=== PATIENT | male | born 1970 | race Caucasian/White ===

== ENCOUNTER 2017-01-22 09:00 | Emergency (ER) | payer OTHER ==
[~2017-01-22] VITALS: Ht 172.7 cm; Wt 149.3 kg
[~2017-01-22 09:00] MED LIST: FLEXERIL10 MG PO; SIMVASTATIN20 MG PO; TYLENOL325 MG PO
[2017-01-22] MEDS ORDERED: PEN NEEDLE1 EAC9 MISC (09:17)
[2017-01-22] MEDS ORDERED: ATORVASTATIN CA10 MG PO (09:17)
[2017-01-22] MEDS ORDERED: LANTUS SOL100 UNIT/1 SUB-Q (09:17)
[2017-01-22] MEDS ORDERED: LISINOPRIL10 MG PO (09:17)
[2017-01-22] MEDS ORDERED: OMEPRAZOLE20 MG PO (09:17)
[2017-01-22] MEDS ORDERED: EPIN0.3P IM (09:24)
[2017-01-22] MEDS ORDERED: METFORMIN HCL500 M1 PO (09:24)
--- NOTE | 2017-01-22 16:35 | EKG ---
[facility] [address] [facility] [place] [address] Signed Normal sinus rhythm Normal ECG No previous ECGs available Confirmed by ROSENDA LECHUGA MD ([id number]) on 01/22/2017 4:35:32 PM Electronically Signed By: ROSENDA LECHUGA MD 01/22/17 1635 PATIENT NAME: KEVIN LIMA OLIVER Electrocardiogram DATE OF : 72 PHYSICIAN: ROSENDA LECHUGA MD REPORT #: [id number] REPORT IS CONFIDENTIAL AND NOT TO BE RELEASED WITHOUT AUTHORIZATION
== END 2017-01-22 11:23 | disposition home or self-care (01) ==
LOC: ED 09:00
DX: R05 Cough (principal); E11.9 Type 2 diabetes mellitus without complications; E78.5 Hyperlipidemia, unspecified; I10 Essential (primary) hypertension; E66.01 Morbid (severe) obesity due to excess calories; Z87.891 Personal history of nicotine dependence; Z91.048 Other nonmedicinal substance allergy status; Z88.7 Allergy status to serum and vaccine; Z79.899 Other long term (current) drug therapy; Z79.4 Long term (current) use of insulin
CPT/HCPCS: 71020; 80053; 83880; 84484; 85025; 93005; 93010; 94640; 99284

== ENCOUNTER 2017-02-13 18:32 | Emergency (ER) | payer OTHER ==
[~2017-02-13] VITALS: Ht 172.7 cm; Wt 149.7 kg
[~2017-02-13 18:32] MED LIST changes: +ATORVASTATIN CA10 MG PO; +EPIN0.3P IM; +LANTUS SOL100 UNIT/1 SUB-Q; +LISINOPRIL10 MG PO; +METFORMIN HCL500 M1 PO; +OMEPRAZOLE20 MG PO; +PEN NEEDLE1 EAC9 MISC
--- OUTSIDE RECORDS SUMMARY | 2017-02-13 21:37 | XMS | Clinical Summary ---
Demographics + + + | Address | [address] | | | [place] [address] | + + + | Home Phone | | + + + | Preferred Language | Unknown | + + + | Marital Status | Unknown | + + + | Confucianist Affiliation | NON | + + + | Race | White | + + + | Ethnic Group | Not or | + + + Author + + + | Author | [facility] | + + + | Organization | [facility] | + + + | Address | Unknown | + + + | Phone | Unavailable | + + + Care Team Providers + +------+ + | Care Director [employer] Name | Role | Phone | + +------+ + PP | Unavailable | + +------+ + Source Comments MARQUIS is fully live on both [facility] and [facility] InPatient.[facility] Allergies Not on File Current Medications Not on file Active Problems Not on file Social History + +-------+ +--------+------+ | Tobacco Use | Types | Packs/Day | Years | Date | | | | | Used | | + +-------+ +--------+------+ | Never Assessed | | | | | + +-------+ +--------+------+ + + + | Sex Assigned at | Date Recorded | | | | + + + | Not on file | | + + + Plan of Treatment + + + + + | Health Maintenance | Due Date | Last Done | Comments | + + + + + | INFLUENZA VACCINE | | | | | (FLU SHOT) | 7 | | | + + + + + Results Not on filefrom Last 3 Months"
== END 2017-02-13 20:50 | disposition home or self-care (01) ==
LOC: ED 18:32
DX: K62.5 Hemorrhage of anus and rectum (principal); Z91.048 Other nonmedicinal substance allergy status; Z79.4 Long term (current) use of insulin; Z88.7 Allergy status to serum and vaccine; Z98.890 Other specified postprocedural states; E11.9 Type 2 diabetes mellitus without complications; E78.5 Hyperlipidemia, unspecified; I10 Essential (primary) hypertension; Z87.891 Personal history of nicotine dependence; Z79.899 Other long term (current) drug therapy
CPT/HCPCS: 80053; 85025; 85610; 85730; 99283

== ENCOUNTER 2017-05-30 07:11 | Day surgery (SDC) | payer OTHER ==
[~2017-05-30] VITALS: Ht 172.7 cm; Wt 147.5 kg
--- NOTE | 2017-05-30 09:42 | NUR ---
05/30/17 0942 Elena Cullen 0840 PT ARRIVED IN PACU SLEEPY. ABD SOFT AND PT PASSING FLATUS. 0900 PT AWAKE SITTING UP IN BED. SIPPING ON WATER. 0920 DC INSTRUCTIONS GIVEN TO PT/SPOUSE. LEFT VIA W/C.
--- NOTE | 2017-06-07 06:10 | OR ---
[facility] [address] [place], [place] [address] Signed DATE OF OPERATION: 05/30/2017 SURGEON: Fina Dickinson MD PREOPERATIVE DIAGNOSES: 1. Rectal bleeding. 2. Guaiac-positive stool. POSTOPERATIVE DIAGNOSIS: Minimal internal hemorrhoids. PROCEDURE: Colonoscopy without biopsy. ESTIMATED BLOOD LOSS: None. 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 In the last five months he has had a lot of trouble with rectal bleeding. He said it is worse with bowel movements. He had been in the emergency room and of course, he was guaiac-positive. Really nothing in the way of external hemorrhoids. Consequently, his primary care provider asked him to see me for a colonoscopy. In the office, I gave him a booklet on colonoscopy. We looked at that together along with the risks including, but not limited to gas bloating, crampy abdominal pain, bleeding, perforation, requiring surgery, and missed diagnosis. We also discussed the need for IV conscious sedation. He had expressed understanding and wished to proceed. PROCEDURE NOTE: Jayjay was taken into our endoscopy suite and placed in the left lateral decubitus position. He was given divided doses of 4 mg of Versed and 100 mcg of fentanyl. A digital rectal exam was performed and this was unremarkable. Nothing in the way of external hemorrhoids. He is a large man and I could just feel the bottom of his prostate. It was unremarkable. The adult colonoscope was introduced and advanced all way around into the cecum under direct visualization of the camera. He had a moderate bowel prep. He should consider some additional prep on his next colonoscopy. There were areas of solid particulate stool matter, I could not suction completely through the scope. After this, the scope was slowly withdrawn. We saw no pathology in his entire colon or rectum. Upon retroflexion of scope, he has minimal internal hemorrhoid Electronically Signed By: FINA DICKINSON MD 06/07/17 0610 PATIENT NAME: JAYJAY LIMA OLIVER OPERATIVE REPORT DATE OF : 72 REPORT #: [id number] PHYSICIAN: FINA DICKINSON MD PCP: ERMA VILLANUEVA PA-C REPORT IS CONFIDENTIAL AND NOT TO BE RELEASED WITHOUT AUTHORIZATION [facility] [address] [place] [id number] Signed columns. After this, the gas was suctioned out. The colonoscope removed. Jayjay tolerated the procedure quite well. RECOMMENDATIONS: Jayjay is welcome to follow up my office if he continues to have rectal bleeding. We could do a formal anoscopy in the office. Otherwise, we will see him back in 10 years for repeat colonoscopy. MD JOVON Billy/JIMI /[id number] cc: Erma Villanueva PA-C Electronically Signed By: FINA DICKINSON MD 06/07/17 0610 PATIENT NAME: JAYJAY LIMA OPERATIVE REPORT DATE OF : 72 REPORT #: [id number] PHYSICIAN: FINA DICKINSON MD PCP: ERMA VILLANUEVA PA-C REPORT IS CONFIDENTIAL AND NOT TO BE RELEASED WITHOUT AUTHORIZATION
== END 2017-05-30 09:20 | disposition home or self-care (01) ==
LOC: DS 07:11 → OPS 07:11 → DS 08:15 → OPS 09:20
PROVIDERS: Colon & Rectal Surgery
PROC: 0DJD8ZZ Inspection of Lower Intestinal Tract, Via Natural or Artificial Opening Endoscopic (ICD-10-PCS; principal; 2017-05-30 08:15)
DX: K64.8 Other hemorrhoids (principal); I10 Essential (primary) hypertension; G47.33 Obstructive sleep apnea (adult) (pediatric); K21.9 Gastro-esophageal reflux disease without esophagitis; E78.5 Hyperlipidemia, unspecified; E66.9 Obesity, unspecified; E11.9 Type 2 diabetes mellitus without complications; F31.9 Bipolar disorder, unspecified; Z98.890 Other specified postprocedural states; Z79.4 Long term (current) use of insulin; Z79.899 Other long term (current) drug therapy; Z99.89 Dependence on other enabling machines and devices; Z88.7 Allergy status to serum and vaccine; Z68.42 Body mass index [BMI] 45.0-49.9, adult
CPT/HCPCS: G0500; J2250; J3010; J7120

== ENCOUNTER 2018-12-11 17:34 | Emergency (ER) | payer OTHER ==
[~2018-12-11] VITALS: Ht 172.7 cm; Wt 148.4 kg
[2018-12-11] MEDS ORDERED: NOVOLOG100 UNIT/1 SUB-Q (18:04)
[2018-12-11] MEDS ORDERED: OZEMPIC1 MG/0.75 (18:05)
[2018-12-11] MEDS ORDERED: FENOGLIDE120 MG PO (18:06)
== END 2018-12-11 19:02 | disposition home or self-care (01) ==
LOC: ED 17:34
DX: S93.401A Sprain of unspecified ligament of right ankle, initial encounter (principal); I10 Essential (primary) hypertension; E11.9 Type 2 diabetes mellitus without complications; E78.5 Hyperlipidemia, unspecified; Z91.030 Bee allergy status; Z88.7 Allergy status to serum and vaccine; Z87.891 Personal history of nicotine dependence; Z79.4 Long term (current) use of insulin; Z79.899 Other long term (current) drug therapy; X50.1XXA Overexertion from prolonged static or awkward postures, initial encounter
CPT/HCPCS: 73610; 99283-25

== ENCOUNTER 2019-09-30 00:06 | Emergency (ER) | payer OTHER ==
[~2019-09-30] VITALS: Ht 172.7 cm; Wt 147.5 kg
[~2019-09-30 00:06] MED LIST changes: +FENOGLIDE120 MG PO; +NOVOLOG100 UNIT/1 SUB-Q; +OZEMPIC1 MG/0.75
[2019-09-30] MEDS ORDERED: CRUTCH1 EACH MISC (01:07)
[2019-09-30] MEDS ORDERED: NORCO 5-325 TA1 EACH PO (01:08)
== END 2019-09-30 01:40 | disposition home or self-care (01) ==
LOC: ED 00:06
DX: S86.111A Strain of other muscle(s) and tendon(s) of posterior muscle group at lower leg level, right leg, initial encounter (principal); E11.9 Type 2 diabetes mellitus without complications; E78.5 Hyperlipidemia, unspecified; I10 Essential (primary) hypertension; E66.9 Obesity, unspecified; Z91.030 Bee allergy status; Z88.7 Allergy status to serum and vaccine; Z79.899 Other long term (current) drug therapy; Z79.4 Long term (current) use of insulin; W10.9XXA Fall (on) (from) unspecified stairs and steps, initial encounter
CPT/HCPCS: 73560; 99283-25

== ENCOUNTER 2021-03-16 08:20 | Day surgery (SDC) | payer OTHER ==
[~2021-03-16] VITALS: Ht 172.7 cm; Wt 136.4 kg
[~2021-03-16 08:20] MED LIST changes: +CRUTCH1 EACH MISC; +NORCO 5-325 TA1 EACH PO
[2021-03-16] MEDS ORDERED: HUMALOG100 UNIT/1 SUB-Q (09:12)
[2021-03-16] MEDS ORDERED: JARDIANCE25 MG PO (09:12)
--- NOTE | 2021-03-16 10:46 | NUR ---
03/16/21 Andres6 Nimisha Hughes 1034 - PT TO PACU VIA STRETCHER, MOVES ALL EXTREMITIES X 4. PASSING GAS.
--- NOTE | 2021-03-16 17:16 | OR ---
[facility] [address] [place], [place] [address] Signed DATE OF OPERATION: 03/16/2021 SURGEON: Fina Dickinson MD PREOPERATIVE DIAGNOSES: 1. Intermittent rectal bleeding. 2. Intermittent left lower quadrant abdominal pain. 3. Unremarkable colonoscopy in 2018 with poor bowel prep. 4. Minimal internal hemorrhoids. POSTOPERATIVE DIAGNOSIS: Minimal internal hemorrhoids. PROCEDURE: Colonoscopy without biopsy. ESTIMATED BLOOD LOSS: None. INDICATIONS: Mr. Ro is a 51-year-old obese, diabetic gentleman, asked to see me for followup colonoscopy. He told me he cut his sugar way back and has lost 65 pounds. He said he is doing much better. In fact, he moved from BiPAP down to CPAP for his sleep apnea. Nevertheless, he still having some intermittent rectal bleeding. He said he has occasional left lower quadrant abdominal pain. He did well with Versed and fentanyl for his colonoscopy back in 2018. Unfortunately, his bowel prep was less than optimal. At that time, we found just minimal internal hemorrhoids. He said he sits in the chair most of the day at work. His primary care provider asked him to come for followup. In the office, I gave Jayjay a pamphlet on colonoscopy and we had reviewed that test together. He understands there is risk including, but not limited to gas bloating, crampy abdominal pain, bleeding, perforation requiring surgery, and missed diagnosis. On this occasion, he did do a double bowel prep. He said that worked out much better. He is also aware of the need for IV conscious sedation. He had expressed understanding and wished to proceed. PROCEDURE NOTE: Jayjay was taken into our endoscopy suite and placed in the left lateral decubitus position. He was given a total of 6 mg of Versed and 100 mcg of fentanyl. A digital rectal exam was performed and this was unremarkable. He has good sphincter tone. The adult colonoscope was introduced and advanced under direct visualization of camera Electronically Signed By: FINA DICKINSON MD 03/16/21 1716 PATIENT NAME: JAYJAY LIMA OPERATIVE REPORT DATE OF : 72 REPORT #: [id number] PHYSICIAN: FINA DICKINSON MD PCP: ERMA MAYES PA-C REPORT IS CONFIDENTIAL AND NOT TO BE RELEASED WITHOUT AUTHORIZATION [facility] [address] [place] [id number] Signed without difficulty. His prep was quite optimal on this occasion. We could easily see the appendiceal orifice and the ileocecal valve. The scope was then slowly withdrawn. We took pictures throughout for photodocumentation. There were no diverticula noted, there were no polyps. The rectum was unremarkable. Upon retroflexion of scope, he does have just minimal internal hemorrhoid tissue. After this, the gas was suctioned out. The colonoscope removed. Jayjay tolerated the procedure quite well. RECOMMENDATIONS: Jayjay can return in 10 years for repeat colonoscopy. MD JOVON Billy/NOEMÍL /[id number] cc: MD Erma Billy PA-C Copies: FINA DICKINSON MD, CHLOE K PA-C ~ Electronically Signed By: FINA DICKINSON MD 03/16/21 1716 PATIENT NAME: JAYJAY LIMA CHANDLER OPERATIVE REPORT DATE OF : 72 REPORT #: [id number] PHYSICIAN: FINA DICKINSON MD PCP: ERMA MAYES PA-C REPORT IS CONFIDENTIAL AND NOT TO BE RELEASED WITHOUT AUTHORIZATION
== END 2021-03-16 11:10 | disposition home or self-care (01) ==
LOC: OPS 08:20 → DS 08:26 → OPS 08:45 → DS 09:45 → OPS 11:10
PROVIDERS: ATTEND Colon & Rectal Surgery
PROC: 0DJD8ZZ Inspection of Lower Intestinal Tract, Via Natural or Artificial Opening Endoscopic (ICD-10-PCS; principal; 2021-03-16 08:45)
DX: K64.8 Other hemorrhoids (principal); K62.5 Hemorrhage of anus and rectum; R10.32 Left lower quadrant pain; E11.9 Type 2 diabetes mellitus without complications; E66.9 Obesity, unspecified; I10 Essential (primary) hypertension; G47.33 Obstructive sleep apnea (adult) (pediatric); K21.9 Gastro-esophageal reflux disease without esophagitis; F17.210 Nicotine dependence, cigarettes, uncomplicated; E78.00 Pure hypercholesterolemia, unspecified; Z79.4 Long term (current) use of insulin; Z88.7 Allergy status to serum and vaccine; Z91.030 Bee allergy status; Z68.42 Body mass index [BMI] 45.0-49.9, adult
CPT/HCPCS: 99153; G0500; J2250; J3010; J7121